=== PATIENT | female | born 1980 | race Caucasian/White ===

== ENCOUNTER → 2022-02-04 10:23 | Outpatient (BNVA) | payer OTHER, SELFPAY | PROVIDERS: PCP Family Medicine; Visit Provider Nurse Practitioner Family | DX: R68.89 Other general symptoms and signs (principal); J04.0 Acute laryngitis; J22 Unspecified acute lower respiratory infection; B96.89 Other specified bacterial agents as the cause of diseases classified elsewhere; H65.93 Unspecified nonsuppurative otitis media, bilateral | CPT/HCPCS: 87400 ==

== ENCOUNTER → 2022-08-22 15:48 | Outpatient (BNVA) | payer OTHER, SELFPAY | PROVIDERS: PCP Family Medicine; Visit Provider Nurse Practitioner Family | DX: J02.9 Acute pharyngitis, unspecified (principal); H69.83 Other specified disorders of Eustachian tube, bilateral | CPT/HCPCS: 87071; 87880 ==